=== PATIENT | male | born 1995 | race Caucasian/White ===

== ENCOUNTER 2024-12-15 18:07 | Inpatient (IN) | payer OTHER, MEDICAID ==
[~2024-12-15] VITALS: Ht 175.3 cm; Wt 88.5 kg
[2024-12-15 18:09] VITALS: O2SAT 98
[2024-12-15] MEDS: KETOROLAC 15MG/ML VIAL IV ONE (18:30)
[2024-12-15] MEDS: SODIUM CHLORIDE 0.9% 1,000 ML IV ONE ×2 (18:31→19:41)
[2024-12-15] MEDS: DIAZEPAM 5 MG/ML 2ML SYR IV ONE (18:31)
[2024-12-15 19:18] LABS: BASOPHILS % 0.4 % (0.0-2.0); EOSINOPHILS % 0.4 % (0.0-5.0); HEMATOCRIT. 47.4 % (42.0-52.0); HEMOGLOBIN. 15.8 g/dL (14.0-18.0); LYMPHOCYTES % 10.5 % (20.0-50.0); MEAN PLATELET VOLUME 9.6 fl (7.4-10.4); MONOCYTES % 7.3 % (2.0-8.0); NEUTROPHILS % 81.4 % (40.0-76.0); PLATELET 266 x1000/uL (130-400); RED BLOOD CELL COUNT 4.99 mill/uL (4.7-6.1); RED CELL DISTRIBUTION WIDTH 13.5 % (11.6-14.6)
[2024-12-15 19:26] LABS: CREATININE 2.5 mg/dL (0.6-1.3)
[2024-12-15 19:27] LABS: TROPONIN I HIGH SENSITIVITY 5 ng/L (3.0-53); UREA NITROGEN BLOOD 15 mg/dL (9-23)
[2024-12-15 19:28] LABS: ASPARTATE AMINOTRANSFERASE 159 IU/L (<34)
[2024-12-15 19:29] LABS: BILIRUBIN DIRECT 0.3 mg/dL (<=3.0); BILIRUBIN TOTAL 1.1 mg/dL (0.1-1.0); PROTEIN TOTAL 9.0 g/dL (6.0-8.3)
[2024-12-15 20:45] LABS: CLARITY URINE TURBID (CLEAR); COLOR URINE DARK YELLOW (YELLOW); GLUCOSE URINE NEGATIVE (NEGATIVE); KETONES URINE 1+ (NEGATIVE); LEUKOCYTE ESTERASE URINE NEGATIVE (NEGATIVE); NITRITE URINE NEGATIVE (NEGATIVE); OCCULT BLOOD URINE 2+ (NEGATIVE); PH URINE 5.5 (4.5-8.0); PROTEIN URINE 3+ (NEGATIVE); SPECIFIC GRAVITY URINE 1.031 (1.005-1.030); UROBILINOGEN URINE 1.0 E.U./dL (0.2-1.0)
[2024-12-15] MEDS ORDERED: ONDANSETRON HCL 4MG/2ML INJ IV PRN (21:30)
[2024-12-15] MEDS ORDERED: CLONIDINE 0.1MG TABLET PO PRN (21:30)
[2024-12-15] MEDS ORDERED: DOCUSATE SODIUM 100MG CAPSULE PO PRN (21:30)
[2024-12-15] MEDS ORDERED: IPRATROPIUM/ALBUTEROL 0.5-3(2.5)MG/3ML NEB HHN PRN (21:30)
[2024-12-15] MEDS ORDERED: ACETAMINOPHEN 325MG TABLET PO PRN (21:30)
[2024-12-15 21:32] LABS: BACTERIA URINE NONE SEEN; RBC URINE 0-2 /hpf (0-2); WBC URINE NONE SEEN /hpf (0-2)
[2024-12-15 21:33] LABS: MUCUS URINE 1+ /lpf (NONE/TRACE)
[2024-12-15 22:57] VITALS: BP 141/89; PULSE 64; RESP 20; TEMP 36.696
[2024-12-15] MEDS: FOLIC ACID 1MG TABLET PO SCH (23:19)
[2024-12-15] MEDS: THIAMINE HCL 100MG TABLET PO SCH (23:19)
[2024-12-15] MEDS: SODIUM CHLORIDE 0.9% 1,000 ML IV SCH (23:20)
[2024-12-16] VITALS: BP 132/59; PULSE 62; RESP 17; TEMP 36.4; O2SAT 99
[2024-12-16 04:00] VITALS: BP 118/75; PULSE 62; RESP 20; TEMP 36.2; O2SAT 99
[2024-12-16 07:20] LABS: BASOPHILS % 0.6 % (0.0-2.0); EOSINOPHILS % 1.2 % (0.0-5.0); HEMATOCRIT. 42.7 % (42.0-52.0); HEMOGLOBIN. 14.1 g/dL (14.0-18.0); LYMPHOCYTES % 20.4 % (20.0-50.0); MEAN PLATELET VOLUME 9.4 fl (7.4-10.4); MONOCYTES % 13.4 % (2.0-8.0); NEUTROPHILS % 64.4 % (40.0-76.0); PLATELET 225 x1000/uL (130-400); RED BLOOD CELL COUNT 4.49 mill/uL (4.7-6.1); RED CELL DISTRIBUTION WIDTH 14.0 % (11.6-14.6)
[2024-12-16 07:37] LABS: LDL CHOLESTEROL 92.0 mg/dL (5-100); TRIGLYCERIDE 65.0 mg/dL (0-150); UREA NITROGEN BLOOD 14.0 mg/dL (9-23)
[2024-12-16 07:41] LABS: T4 FREE 1.55 ng/dL (0.89-1.76)
[2024-12-16 08:00] VITALS: BP 128/69; PULSE 68; RESP 16; TEMP 36.7; O2SAT 98
[2024-12-16 08:17] LABS: CREATININE 1.5 mg/dL (0.6-1.3)
[2024-12-16 08:18] LABS: HEPATITIS C AB NON REACTIVE (Neg) (Negative)
[2024-12-16 08:38] LABS: *AMPHETAMINES SCREEN URINE NEGATIVE (NEGATIVE)
[2024-12-16 08:39] LABS: *BARBITURATES SCREEN URINE NEGATIVE (NEGATIVE); *BENZODIAZEPINES SCREEN URINE PRESUMPTIVE POSITIVE (NEGATIVE); *COCAINE SCREEN URINE NEGATIVE (NEGATIVE); METHADONE URINE SCREEN NEGATIVE (NEGATIVE); OPIATES URINE SCREEN NEGATIVE (NEGATIVE); PHENCYCLIDINE URINE SCREEN NEGATIVE (NEGATIVE)
[2024-12-16 08:40] LABS: CANNABINOID URINE SCREEN PRESUMPTIVE POSITIVE (NEGATIVE); ECSTASY MDMA SCREEN URINE NEGATIVE (NEGATIVE)
[2024-12-16] MEDS: PANTOPRAZOLE SODIUM 40 MG/VIAL IV SCH (09:33)
[2024-12-16] MEDS: SODIUM CHLORIDE 0.9% 1,000 ML IV SCH (09:51)
[2024-12-16 12:14] VITALS: BP 128/69; PULSE 68; RESP 16; TEMP 98.1
== END 2024-12-16 12:28 | disposition home or self-care (01) | DRG 351 ==
LOC: ER 18:07 → 5WST 20:19 → EDBEDREQ 20:20 → EDBEDREQTM 20:20 → ENRESERV 20:50
PROVIDERS: ADMIT Student in an Organized Health Care Education/Training Program; ATTEND Student in an Organized Health Care Education/Training Program
DX: M62.82 Rhabdomyolysis (principal); E87.20 Acidosis, unspecified; N17.9 Acute kidney failure, unspecified; N18.9 Chronic kidney disease, unspecified; D72.829 Elevated white blood cell count, unspecified; E83.52 Hypercalcemia; R73.9 Hyperglycemia, unspecified; R74.01 Elevation of levels of liver transaminase levels; E80.6 Other disorders of bilirubin metabolism; R80.9 Proteinuria, unspecified
CPT/HCPCS: 36415; 76700; 80048; 80061; 80076; 80305; 81003; 82550; 83036; 83605; 83735; 84145; 84439; 84443; 84484; 85025; 86705; 87340; 93005; 99291; A4606; J1885; J2470; J7030